=== PATIENT | female | born 1940 | race Native Hawaiian/Other Pacific Islander ===

== ENCOUNTER 2016-11-29 09:44 | Outpatient (CLI) | payer OTHER ==
[2016-11-29] MEDS ORDERED: LISI20TA11 PO (10:46)
[2016-11-29] MEDS ORDERED: METO25TA2 PO (10:47)
[2016-11-29] MEDS ORDERED: FURO20TA67 PO (10:52)
[2016-11-29] MEDS ORDERED: XOPENEX HFA IN (10:52)
[2016-11-29] MEDS ORDERED: DOCU SOFT100 MG OR (10:53)
[2016-11-29] MEDS ORDERED: METHADONE10 MG OR (10:54)
[2016-11-29] MEDS ORDERED: OXYC10TAB PO (10:54)
== END 2016-11-29 09:59 | disposition short-term general hospital (02) ==
LOC: AMB 09:44
DX: M54.6 Pain in thoracic spine (principal); T68.XXXA Hypothermia, initial encounter; Z74.3 Need for continuous supervision; W18.39XA Other fall on same level, initial encounter; Y92.098 Other place in other non-institutional residence as the place of occurrence of the external cause
CPT/HCPCS: A0425; A0427

== ENCOUNTER 2016-11-29 10:03 | Emergency (ER) | payer OTHER ==
[~2016-11-29] VITALS: Ht 167.6 cm; Wt 74.8 kg
[2016-11-29] MEDS ORDERED: LISI20TA11 PO (10:46)
[2016-11-29] MEDS ORDERED: METO25TA2 PO (10:47)
[2016-11-29] MEDS ORDERED: XOPENEX HFA IN (10:52)
[2016-11-29] MEDS ORDERED: FURO20TA67 PO (10:52)
[2016-11-29] MEDS ORDERED: DOCU SOFT100 MG OR (10:53)
[2016-11-29] MEDS ORDERED: OXYC10TAB PO (10:54)
[2016-11-29] MEDS ORDERED: METHADONE10 MG OR (10:54)
[2016-11-29 12:54] LABS: PLATELET COUNT 213 K/uL (152-353)
[2016-11-29 13:03] LABS: POTASSIUM 3.3 mmol/L (3.6-5.2); SODIUM 136 mmol/L (136-145)
[2016-11-29 14:05] VITALS: BP 173/82
== END 2016-11-29 14:37 | disposition home or self-care (01) ==
LOC: ED 10:03
DX: M54.2 Cervicalgia (principal); M54.5 Low back pain; M25.552 Pain in left hip; M25.551 Pain in right hip; M47.892 Other spondylosis, cervical region; M47.896 Other spondylosis, lumbar region; M41.86 Other forms of scoliosis, lumbar region; K59.09 Other constipation; W18.39XA Other fall on same level, initial encounter; Y92.098 Other place in other non-institutional residence as the place of occurrence of the external cause
CPT/HCPCS: 36415; 80053; 81000; 85027; 93005; 96365; 96375; 96376; 99284; J2060; J2270

== ENCOUNTER 2016-11-30 21:42 | Emergency (ER) | payer OTHER ==
[~2016-11-30] VITALS: Ht 165.1 cm; Wt 47.6 kg
[~2016-11-30 21:42] MED LIST: DOCU SOFT100 MG OR; FURO20TA67 PO; LISI20TA11 PO; METHADONE10 MG OR; METO25TA2 PO; OXYC10TAB PO; XOPENEX HFA IN
[2016-11-30 23:08] VITALS: BP 139/89; TEMP 98.7
== END 2016-11-30 23:15 | disposition home or self-care (01) ==
LOC: ED 21:42
DX: S09.8XXA Other specified injuries of head, initial encounter (principal); S00.03XA Contusion of scalp, initial encounter; W01.198A Fall on same level from slipping, tripping and stumbling with subsequent striking against other object, initial encounter; Y92.89 Other specified places as the place of occurrence of the external cause
CPT/HCPCS: 99283

== ENCOUNTER 2017-09-28 10:11 | Outpatient (CLI) | payer OTHER | END 2017-09-28 11:15 | disposition home or self-care (01) | LOC: LAB 10:11 | DX: N39.0 Urinary tract infection, site not specified (principal); L89.623 Pressure ulcer of left heel, stage 3 | CPT/HCPCS: 81000; 87070; 87076; 87077; 87086; 87088; 87186; 87205 ==

== ENCOUNTER 2017-10-31 11:52 | Outpatient (CLI) | payer OTHER | END 2017-10-31 21:16 | disposition home or self-care (01) | LOC: LAB 11:52 | DX: R30.0 Dysuria (principal) | CPT/HCPCS: 81000 ==